=== PATIENT | female | born 1945 | race Caucasian/White ===

== ENCOUNTER 2023-04-27 10:07 | Outpatient (REF) | payer MEDICARE, SELFPAY ==
[2023-04-27 10:59] LABS: Basophils Absolute Auto 0.1 10^3/uL (0.0-0.1); Basophils Percent Auto 0.9 % (0.2-2.0); Eosinophils Absolute Auto 0.5 10^3/uL (0.0-0.7); Eosinophils Percent Auto 5.6 % (0.9-7.0); Hemoglobin 11.4 g/dL (12.0-16.0); Immature Granulocytes Abs Auto 0.04 10^3/uL (0.00-0.03); Immature Granulocytes Pct Auto 0.5 % (0.0-0.5); Lymphocytes Absolute Auto 1.8 10^3/uL (1.2-3.8); Lymphocytes Percent Auto 21.4 % (20.5-60.0); Mean Corpuscular HGB Conc 30.8 g/dL (29.9-35.2); Mean Corpuscular Hemoglobin 27.4 pg (26.7-34.0); Mean Corpuscular Volume 88.9 fL (81.0-99.0); Mean Platelet Volume 11.4 fL (9.5-13.5); Monocytes Absolute Auto 0.5 10^3/uL (0.3-0.8); Monocytes Percent Auto 6.1 % (1.7-12.0); Neutrophils Absolute Auto 5.6 10^3/uL (1.4-6.5); Neutrophils Percent Auto 65.5 % (43.0-75.0); Platelet Count 334 10^3/uL (150-450); Red Blood Count 4.16 10^6/uL (4.20-5.40); Red Cell Distribution Width 15.5 % (11.0-15.0); White Blood Count 8.6 10^3/uL (4.0-11.0)
[2023-04-27 11:39] LABS: Anion Gap 9.9; BUN Creatinine Ratio 50.9; Calcium 9.4 mg/dL (8.5-10.1); Carbon Dioxide 32.4 mmol/L (21.0-32.0); Chloride 103 mmol/L (98-107); Estimated GFR (African America >60 (>=60); Estimated GFR (Non-African Ame >60 (>=60); Glucose 159 mg/dL (74-106); Magnesium 1.8 mg/dL (1.8-2.4); Potassium 3.3 mmol/L (3.5-5.1); Sodium 142 mmol/L (136-145)
== END 2023-04-27 10:08 ==
LOC: LAB 10:07
PROVIDERS: PCP Family Medicine
DX: E11.22 Type 2 diabetes mellitus with diabetic chronic kidney disease (principal); I50.32 Chronic diastolic (congestive) heart failure; E03.9 Hypothyroidism, unspecified; N18.30 Chronic kidney disease, stage 3 unspecified
CPT/HCPCS: 36415; 80048; 83735; 84436; 84443; 85025

== ENCOUNTER 2023-05-02 10:37 | Outpatient (REF) | payer MEDICARE, SELFPAY ==
[2023-05-02 12:06] LABS: Potassium 4.3 mmol/L (3.5-5.1)
== END 2023-05-02 10:38 ==
LOC: LAB 10:37
PROVIDERS: PCP Family Medicine; Visit Provider Family Medicine
DX: Z51.81 Encounter for therapeutic drug level monitoring (principal); Z79.899 Other long term (current) drug therapy
CPT/HCPCS: 36415; 84132

== ENCOUNTER 2023-05-02 13:46 | Outpatient (OUT) | payer MEDICARE, SELFPAY ==
--- NOTE | 2023-05-02 13:54 | CA_ITS ---
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
== END 2023-05-02 13:47 ==
LOC: CARD 13:48
PROVIDERS: PCP Family Medicine
DX: Z51.81 Encounter for therapeutic drug level monitoring (principal); Z79.899 Other long term (current) drug therapy; I63.9 Cerebral infarction, unspecified; I49.8 Other specified cardiac arrhythmias
CPT/HCPCS: 36415; 84132; 93270

== ENCOUNTER 2023-06-08 02:03 | Outpatient (REF) | payer MEDICARE, SELFPAY ==
[2023-06-08 08:25] LABS: Thyroid Stimulating Hormone 0.183 uIU/mL (0.358-3.740)
== END 2023-06-08 02:04 | disposition home or self-care (01) ==
LOC: LAB 02:03
PROVIDERS: PCP Family Medicine; Visit Provider Family Medicine
DX: E03.9 Hypothyroidism, unspecified (principal)
CPT/HCPCS: 36415; 84436; 84443

== ENCOUNTER 2023-07-25 13:53 | Outpatient (REF) | payer MEDICARE, SELFPAY ==
[2023-07-25 14:20] LABS: Basophils Absolute Auto 0.1 10^3/uL (0.0-0.1); Basophils Percent Auto 0.6 % (0.2-2.0); Eosinophils Absolute Auto 0.5 10^3/uL (0.0-0.7); Hematocrit 38.7 % (36.0-48.0); Hemoglobin 12.4 g/dL (12.0-16.0); Immature Granulocytes Abs Auto 0.02 10^3/uL (0.00-0.03); Immature Granulocytes Pct Auto 0.2 % (0.0-0.5); Lymphocytes Absolute Auto 1.5 10^3/uL (1.2-3.8); Lymphocytes Percent Auto 14.8 % (20.5-60.0); Mean Corpuscular Hemoglobin 26.5 pg (26.7-34.0); Mean Corpuscular Volume 82.7 fL (81.0-99.0); Mean Platelet Volume 11.9 fL (9.5-13.5); Monocytes Absolute Auto 0.7 10^3/uL (0.3-0.8); Neutrophils Absolute Auto 7.4 10^3/uL (1.4-6.5); Neutrophils Percent Auto 72.4 % (43.0-75.0); Platelet Count 232 10^3/uL (150-450); Red Blood Count 4.68 10^6/uL (4.20-5.40); Red Cell Distribution Width 16.5 % (11.0-15.0); White Blood Count 10.2 10^3/uL (4.0-11.0)
[2023-07-25 14:24] LABS: Bilirubin Urine NEGATIVE (NEGATIVE); Blood Urine TRACE-I (NEGATIVE); Clarity Urine CLEAR (CLEAR); Color Urine YELLOW (YELLOW); Glucose Urine UA NEGATIVE (NEGATIVE); Ketones Urine TRACE mg/dL (NEGATIVE); Leukocyte Esterase Urine LARGE (NEGATIVE); Nitrite Urine NEGATIVE (NEGATIVE); Protein Urine TRACE mg/dL (NEG/TRACE)
[2023-07-25 14:46] LABS: Alanine Aminotransferase 18 U/L (14-59); Albumin Globulin Ratio 0.6; Albumin Level 2.5 g/dL (3.4-5.0); Alkaline Phosphatase 66 U/L (46-116); Anion Gap 13.5; Aspartate Amino Transferase 13 U/L (15-37); BUN Creatinine Ratio 44.3; Bilirubin Total 0.4 mg/dL (0.2-1.0); Calcium 9.3 mg/dL (8.5-10.1); Carbon Dioxide 28.2 mmol/L (21.0-32.0); Chloride 102 mmol/L (98-107); Estimated GFR (African America >60 (>=60); Estimated GFR (Non-African Ame >60 (>=60); Globulin 4.2 g/dL; Glucose 140 mg/dL (74-106); Potassium 3.7 mmol/L (3.5-5.1); Sodium 140 mmol/L (136-145); Total Protein 6.7 g/dL (6.4-8.2)
== END 2023-07-25 13:54 | disposition home or self-care (01) ==
LOC: LAB 13:53
PROVIDERS: PCP Family Medicine
DX: E11.22 Type 2 diabetes mellitus with diabetic chronic kidney disease (principal); I50.32 Chronic diastolic (congestive) heart failure; R82.998 Other abnormal findings in urine
CPT/HCPCS: 36415; 80053; 81003; 83880; 85025; 87086; 87150; 87186

== ENCOUNTER 2023-08-15 01:13 | Outpatient (REF) | payer MEDICARE, SELFPAY ==
[2023-08-15 08:30] LABS: Basophils Absolute Auto 0.1 10^3/uL (0.0-0.1); Basophils Percent Auto 0.7 % (0.2-2.0); Eosinophils Absolute Auto 0.7 10^3/uL (0.0-0.7); Eosinophils Percent Auto 9.7 % (0.9-7.0); Hematocrit 36.7 % (36.0-48.0); Hemoglobin 11.6 g/dL (12.0-16.0); Immature Granulocytes Abs Auto 0.02 10^3/uL (0.00-0.03); Immature Granulocytes Pct Auto 0.3 % (0.0-0.5); Lymphocytes Absolute Auto 1.7 10^3/uL (1.2-3.8); Lymphocytes Percent Auto 22.9 % (20.5-60.0); Mean Corpuscular HGB Conc 31.6 g/dL (29.9-35.2); Mean Corpuscular Hemoglobin 26.5 pg (26.7-34.0); Mean Corpuscular Volume 83.8 fL (81.0-99.0); Mean Platelet Volume 11.7 fL (9.5-13.5); Monocytes Absolute Auto 0.6 10^3/uL (0.3-0.8); Monocytes Percent Auto 8.7 % (1.7-12.0); Neutrophils Absolute Auto 4.2 10^3/uL (1.4-6.5); Neutrophils Percent Auto 57.7 % (43.0-75.0); Platelet Count 268 10^3/uL (150-450); Red Blood Count 4.38 10^6/uL (4.20-5.40); Red Cell Distribution Width 16.6 % (11.0-15.0); White Blood Count 7.2 10^3/uL (4.0-11.0)
[2023-08-15 09:19] LABS: Estimated Average Glucose 171 mg/dL; Glycohemoglobin A1C 7.6 % (4.5-6.2)
[2023-08-15 09:20] LABS: Anion Gap 11.4; BUN Creatinine Ratio 55.8; Calcium 9.5 mg/dL (8.5-10.1); Carbon Dioxide 30.5 mmol/L (21.0-32.0); Chloride 102 mmol/L (98-107); Estimated GFR (African America >60 (>=60); Estimated GFR (Non-African Ame >60 (>=60); Glucose 121 mg/dL (74-106); Potassium 3.9 mmol/L (3.5-5.1); Sodium 140 mmol/L (136-145)
== END 2023-08-15 01:14 | disposition home or self-care (01) ==
LOC: LAB 01:13
PROVIDERS: PCP Family Medicine; Visit Provider Family Medicine
DX: R73.9 Hyperglycemia, unspecified (principal)
CPT/HCPCS: 36415; 80048; 83036; 85025

== ENCOUNTER 2023-10-04 07:41 | Emergency (ER) | payer MEDICARE, SELFPAY ==
[2023-10-04 07:46] VITALS: BP 113/74; PULSE 74; RESP 16; TEMP 36.9; O2SAT 96; BMI 31.0
--- NOTE | 2023-10-04 07:55 | ED.GENADUL1 ---
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 She had a feeding tube which apparently fell out and somebody at the facility put a Alonso catheter in place instead of the feeding tube. She was sent here for proper feeding tube placement. She is unable to give any history. She doesn't seem to have any complaints. Review of Systems ROS Narrative unobtainable, age PFSH PFSH Social History Smoking status: Unknown if ever smoked Exam Narrative Exam Narrative: Nurses note and vital signs reviewed and patient is not hypoxic. General: The patient appears well and in no apparent distress. Patient is resting comfortably on cart. Skin: Warm, dry, no pallor noted. There is no rash noted. Head: Normocephalic, atraumatic Eye: Normal conjunctiva, no drainage Ears, Nose, Mouth, and Throat: oral mucosa is moist. Nares patent. Cardiovascular: Regular Rate and Rhythm Respiratory: Patient is in no distress, no accessory muscle use, lungs are clear to auscultation, no wheezing, rales or rhonchi GI: soft and nondistended. Alonso catheter is in the feeding tube site. No surrounding erythema. Musculoskeletal: The patient has no evidence of calf tenderness, no pitting edema, symmetrical pulses noted bilaterally Neurological: awake and alert Psychiatric: Cooperative Constitutional Vital Signs, click to edit/add: Last Vital Signs Temp 98.5 F 10/04/23 07:46 Pulse 74 10/04/23 07:46 Resp 16 10/04/23 07:46 BP 113/74 10/04/23 07:46 Pulse Ox 96 10/04/23 07:46 O2 Del Method Room Air 10/04/23 07:46 Course Vital Signs Vital signs: Vital Signs Temperature 98.5 F 10/04/23 07:46 Pulse Rate 74 10/04/23 07:46 Respiratory Rate 16 10/04/23 07:46 Blood Pressure 113/74 10/04/23 07:46 Pulse Oximetry 96 10/04/23 07:46 Oxygen Delivery Method Room Air 10/04/23 07:46 Temperature 98.5 F 10/04/23 07:46 Pulse Rate 74 10/04/23 07:46 Respiratory Rate 16 10/04/23 07:46 Blood Pressure 113/74 10/04/23 07:46 Pulse Oximetry 96 10/04/23 07:46 Oxygen Delivery Method Room Air 10/04/23 07:46 Medical Decision Making MDM Narrative Medical decision making narrative: feeding tube replaced and she is released back to [facility]. Differential Diagnosis Differential Diagnosis: feeding tube problem Discharge Plan Discharge Chief Complaint: Recheck/Abnormal Lab/Rx Clinical Impression: Complication of feeding tube Patient Disposition: Home, Self-Care Time of Disposition Decision: 07:55 Condition: Good Mode of Transportation: Private Vehicle Instructions: How to Use and Care for Your PEG Tube (ED) Stand Alone Forms: Portal Instructions Referrals: MICHELLE GAONA [Primary Care Provider] - 1 week Procedures ED Procedure Instructions Procedures Procedures: I have removed the Alonso catheter that was in place of the feeding tube and placed a new GENESIS tube without difficulty or complication and it is functioning.
== END 2023-10-04 08:29 | disposition home or self-care (01) ==
PROVIDERS: Emergency Provider Emergency Medicine; PCP Family Medicine
DX: Z43.1 Encounter for attention to gastrostomy (principal)
CPT/HCPCS: 99283